=== PATIENT | male | born 1985 | race Caucasian/White ===

== ENCOUNTER 2022-05-10 13:33 | Emergency (ER) | payer SELFPAY ==
[2022-05-10 13:42] VITALS: BP 122/85
== END 2022-05-11 15:50 | disposition left against medical advice (07) ==
LOC: ED 13:33
DX: F32.A Depression, unspecified (principal); Z53.21 Procedure and treatment not carried out due to patient leaving prior to being seen by health care provider

== ENCOUNTER 2022-05-11 06:39 | Emergency (ER) | payer SELFPAY ==
[2022-05-11 06:49] VITALS: BP 99/58
== END 2022-05-11 15:49 | disposition left against medical advice (07) ==
LOC: ED 06:39
DX: Z00.00 Encounter for general adult medical examination without abnormal findings (principal); Z53.21 Procedure and treatment not carried out due to patient leaving prior to being seen by health care provider